=== PATIENT | female | born 1965 | race Asian ===

== ENCOUNTER 2025-04-21 15:32 | Outpatient (CLI) | payer OTHER | END 2025-04-21 23:59 | disposition home or self-care (01) | LOC: RAD 15:32 | PROVIDERS: ATTEND Orthopaedic Surgery | DX: M17.11 Unilateral primary osteoarthritis, right knee (principal) | CPT/HCPCS: 73700 ==

== ENCOUNTER 2025-05-14 09:02 | Inpatient (IN) | payer OTHER ==
[2025-05-06 14:27] LABS: MEAN PLATELET VOLUME 7.8 FL (7.4-10.4); PRE OP HEMATOCRIT 40.6 % (35.0-45.0); PRE OP HEMOGLOBIN 13.6 g/dL (12.0-16.0); PRE OP PLATELET COUNT 390 X10'3 (140-440); PRE OP WHITE BLOOD COUNT 10.1 10'3 (4.8-10.8); RED CELL DISTRIBUTION WIDTH 13.1 % (11.5-14.5)
--- NOTE | 2025-05-06 14:35 | ELECTROCARDIOGRAPH REPORT ---
[facility] Test Date: 2025-05-06 Test Time: 14:33:27 Pat Name: ANILA FLYNN Department: PRE/OP CARDIOLOGY Room: Gender: F Accounts Executive: MAYLIN : 1965 Requested By: RON NORWOOD Order Number: [id number] Reading MD: Dr. Nori Richardson Measurements Intervals [place] Rate: 77 P: 46 TX: 147 QRS: -5 QRSD: 80 T: 12 QT: 367 QTc: 416 Interpretive Statements Sinus rhythm Low voltage, precordial leads Electronically Signed On 05-07-2025 6:39:[address] Nori Richardson Please click the below link to view image of tracing.
[2025-05-06 14:40] LABS: CREATININE 0.74 MG/DL (0.40-0.90); PRE OP ALT 28 U/L (30-65); PRE OP ANION GAP 6 (8-16); PRE OP AST 15 U/L (10-37); PRE OP BILIRUB, TOTAL 0.4 MG/DL (0.0-1.0); PRE OP GLUCOSE 110 MG/DL (70-104); PRE OP POTASSIUM 3.9 MMOL/L (3.4-5.1); PRE OP SODIUM 144 MMOL/L (135-145); TOTAL CARBON DIOXIDE 30.8 MMOL/L (24-32); eGFR 80 ML/MIN
[2025-05-14] VITALS (25 sets, daily range): BP systolic 94–129; BP diastolic 47–78; PULSE 68–83; RESP 7–18; TEMP 97.4–98.4; O2SAT 93–99
[~2025-05-14] VITALS: Ht 165.1 cm; Wt 67.4 kg
[~2025-05-14 09:02] MED LIST: CELE50CA9 PO; GABA300C PO
[2025-05-14] MEDS ORDERED: vancomycin 1,000mg inj ONE (10:13)
[2025-05-14] MEDS ORDERED: BUPIVAcaine 0.5% inj/PF 30 ML ONE (11:27)
[2025-05-14] MEDS ORDERED: tetracaine 1% (10mg/ml) pres. free inj. ONE ×2 (11:28→11:31)
[2025-05-14] MEDS ORDERED: BUPIVACAINE liposomal/PF 13.3 MG/ML 10mL vial IM ONE (11:30)
[2025-05-14] MEDS ORDERED: MIDAZolam 1mg/ml 10ml vial ONE (11:32)
[2025-05-14] MEDS ORDERED: fentaNYL/PF 50MCG/1 ML 2ML syringe ONE (11:32)
[2025-05-14] MEDS ORDERED: propofol inj 20 ML IV ONE ×2 (11:54)
[2025-05-14] MEDS ORDERED: LIDOcaine 1%/PF 5ML 10 MG/ML VIAL ONE (11:54)
[2025-05-14] MEDS ORDERED: desflurane 240ml liquid inh. IH ONE (12:23)
[2025-05-14] MEDS ORDERED: fentaNYL /PF 50mcg/ml 5ml ampule ONE (12:32)
[2025-05-14] MEDS ORDERED: fentaNYL/PF 50MCG/1 ML 2ML syringe IV PRN ×2 (12:50)
[2025-05-14] MEDS ORDERED: labetalol 20mg/4ml (5mg/ml) syringe IV PRN (12:50)
[2025-05-14] MEDS ORDERED: morphine 4 MG/ML inj SYRINge IV PRN (12:50)
[2025-05-14] MEDS ORDERED: hydrALAZINE 20mg/ml inj. IV PRN (12:50)
[2025-05-14] MEDS ORDERED: ondansetron/PF 4mg/2ml inj IV PRN ×2 (12:50→14:50)
--- NOTE | 2025-05-14 13:00 | ANESTHESIA RECORDS ---
Nerve Block Providers to CC CC: RON NORWOOD MD ~ Diagnosis: Nerve Block requested by: RON NORWOOD MD Neuraxial/Peripheral Nerve Block requested for Post-operative analgesia by Physician above DIAGNOSIS: Post-operative pain. (Body Area) Shoulder: [ ] Arm: [ ] Hand: [ ] Hip: [ ] Knee: [ Right ] Ankle: [ ] Foot: [ ] Leg: [ ] Abdomen: [ ] Other: [ ] Post-operative pain expected to be/is inadequately managed by oral or IV medicines. Regional anesthetic expected to facilitate rehabilitation and/or discharge from facility. Other:[ _] Procedure Performed: Femoral / Saphenous: Right Other: Right IPACK Block Time out Done?: Yes Time of Time out: 12:19 Procedure Details: PROCEDURE DETAILS: Risks, benefits and alternatives explained Informed consent obtained, and patient wishes to proceed Conscious sedation with indicated monitors Patient positioned, pertinent anatomy defined, sterile technique used Needle used: [ ] 3 1/8 inch Stimuplex Ultra 22ga [ ] 4 inch Stimuplex Ultra 20ga [X ] 6 inch Stimuplex Ultra 20ga [ ] 6 inch, Quikbloc over the needle catheter set 20ga [ ] 4 inch Quikbloc over the needle catheter set 20ga [ ]Other: [ ] Loss of twitch @ [ ]mA [X ] Single Injection [ ] Catheter Ultrasound Guidance Used: [X ] Yes [ ] No Attempts:[__1,1 ] Medicines injected: [ ]Clonidine Amt:[ ] [ ]Dexamethasone Amt:[ ] [ ]Ropivacaine Amt:[ ] [ X ]Bupivacaine Amt:[_0.5% 30 c.c ] [ ]Lidocaine Amt:[ ] [ X ]Exparel 1.33%:[____20 c.c ] [ ]Epinephrine Amt[ ] [ ]Other: [ ] Intermittent aspiration during local anesthetic administration No symptoms of intraneural or intravenous injection Patient tolerated procedure well Comments Right mid medial thighis examined with Ultrasound and Adductor canal and vessels in the canal are identified. Needle is in canal,after negative aspirations, 10 c.c of exparel,+0.5 bupevacaine 20 c.c injected.Spread is noted. Ultrasound image is captured,documented. Right IPACK block: Right posterior thigh is examined at the level of right femoral condyle. Popliteal vessels, Posterior knee capsule are identified. Needle is placed between the knee capsule and popliteal vessels. and a mix of 10 c.c exparel,10 c.c 0.5% bupevacaine is infiltrated. spread is noted. Ultraso und image is cptured,documented. JESU AKBAR MD May 14, 2025 13:00
[2025-05-14] MEDS ORDERED: dexmedetomidine 200mcg/2ml inj. IV ONE (13:17)
[2025-05-14] MEDS ORDERED: PCA WASTE DOCUMENTATION 1 MG ML MC SCH (14:50)
[2025-05-14] MEDS ORDERED: bisacodyl 10mg suppository rectal RC PRN (14:50)
[2025-05-14] MEDS ORDERED: HYDROmorphone inj. 0.5 MG/0.5 ML DISP.SYRIN IV PRN (14:50)
[2025-05-14] MEDS ORDERED: magnesium hydroxide 30ml (MOM) UD suspension PO PRN (14:50)
--- NOTE | 2025-05-14 15:08 | OPERATIVE REPORT ---
Operative Report Providers to ~ Date of Procedure: May 14, 2025 Pre-Operative Diagnosis: SEVERE DEGENERATIVE JOINT DISEASE RIGHT KNEE. Post-Operative Diagnosis SAME as PRE-Op Procedure Performed RIGHT TOTAL KNEE CEMENTED Surgeon: RON NORWOOD MD [employer] MIKE BRANCH Anesthesiologist: Les Jernigan Type of Anesthesia: Regional (ADDUCTOR CANAL BLOCK WITH ON Q PUMP I PACK BLOCK RIGHT KNEE), Spinal Findings: SEVERE GRADE 4 TRICOMPARTMENTAL DEGENERATIVE JOINT DISEASE CHRONIC SYNOVITIS MODERATE VARUS DEFORMITY MILD FLEXION CONTRACTURE Complications None Prosthetics\Implants used: Attune to pew of the knee system size 5 right cruciate retaining femoral component. Size four tibial base plate 5 mm thick tibial insert fixed bearing medial stabilized anatomic patella 32 mm cemented PMMA antibiotic cement used Estimated Blood Loss: 150 mL Specimen Removed: Degenerative bone, meniscal, and cruciate tissues Description of Procedure: Patient was taken to the operating room after I had obtained informed consent signed her right knee I answered all of her questions discussing the indications risks benefits limitations and potential complications once this was completed the patient was given intravenous prophylactic antibiotics per protocol and then taken to the operating room she was given a spinal anesthetic and then placed in the supine position on the OR table with the left leg being placed in a SCD device. The right leg was prepped and draped in usual sterile orthopaedic fashion with a well-padded thigh tourniquet. Surgical time-out was taken per p rotocol and the case was begun. Esmarch was used for exsanguination and tourniquet was insufflated patient's knee was protected with Ioban skin dressing throughout. IM P leg salas was used. Anterior incision measuring approximately 7 in was made a medial parapatellar approach was accomplished without difficulty hemostasis was achieved with electrocautery throughout the case. Patella was inverted and found to have extensive grade 4 degenerative changes with osteophytes minimal resection of the articular surface of the patella was accomplished with the freehand technique this is measured to a 38 mm patella implant this was drilled in preparation for fixation with cement. Patellar skin was placed to protect his patella and subluxed laterally to expose the distal femur by placing the knee in flexion Medullary canal was established with a drill bit medullary adria was placed in the knee. Standard distal femoral cut was made achieving a 5 degree valgus cut this is a diminutive knee . The knee was brought onto maximal flexion and exposure of the tibial plateau was accomplished by releasing the meniscal tissue cruciate tissue as well retractors were placed posteriorly medially and laterally to expose the proximal tibia medullary canal was drilled the medullary adria was placed in the tibia anesthetic cut with a 5 degree posterior slope was placed removing a proximally 5 mm of proximal tibia measuring off the medial side this is removed without difficulty flexion-extension gaps were measured at main equal by placing the femoral component 2 mm posteriorly Distal femoral cuts were made with the for one cutting block after flexion gap was used tension diameter to establish external rotation alignment. For one cutting block with a size five cutting block was placed and anterior and posterior cuts and chamfer cuts were made without difficulty trial component fit nicely on both the tibia and femur in the knee was taken through a range of motion with a 5 mm polyethylene insert giving us full extension and full flexion stable throughout the range of motion of the patella tracking centrally Trial components were removed bony cut surfaces were irrigated and dried fixation of the definitive implants were accomplished 1st with the tibia followed by the femur placing the leg in extension with a 6 mm polyethylene insert and the patella was cemented separately with a quick set cement Simplex PMMA under a bony clamp once all cement cured in an all excess cement was removed. The tourniquet had been released hemostasis was double checked and accomplished with electrocautery tourniquet was reinflated after the leg was exsanguinated again 2 L of antibiotic impregnated normal saline was used for irrigation 1 L of antiseptic solution was used then inside portions of the knee were dried with a fresh lap sponge local anesthetic was injected in both the medial and lateral gutters for postoperative pain relief. Thrombin spray was used for hemostasis and 1 g of vancomycin powder was placed into intra- articularly for prophylaxis. The knee was taken and placed in 30 of knee flexion and medial parapatellar approach was accomplished was closed with 2. Ethibond sutures interrupted. The knee was taken two through a range of motion ensure that the patella again tracked centrally and completely achieving full range of motion. Subcuticular closure was accomplished with 2-0 Vicryl interrupted skin was closed with skin alec and sealed with silk dressing tourniquet had been released good distal pulses and capillary refill returned to the extremity. The anesthesiologist now did the adductor canal block and IPAP block afterwards the patient was then transferred to the gurney and recovery room in stable condition there were no apparent perioperative complications needle and sponge count was reported to be correct Counts repoted as correct: Yes RON NORWOOD MD May 14, 2025 15:08
--- NOTE | 2025-05-14 15:43 | RADIOLOGY REPORT ---
CLINICAL INDICATION: POSTOP RT. KNEE TECHNIQUE: DI KNEE LIMITED (AP/LAT) Comparison: CT CT LOWER EXTREMITY on DOS: 04/21/25 FINDINGS/IMPRESSION: : Expected findings post right knee arthroplasty.
[2025-05-14] MEDS: tranexamic acid inj. 700 MG in normal saline 100ml IV soln 100 ML IV ONE (19:07)
[2025-05-14] MEDS: ceFAZolin/D5W- 1GM premix 50 ML IV SCH (19:55)
[2025-05-14] MEDS ORDERED: CELECOXIB 50 MG PO SCH (20:00)
--- NOTE | 2025-05-14 21:16 | CONSULTATION REPORT - RESIDENT ---
Consult Providers to CC Resident Creating Document: FARHAN SILVA RES History of Present Illness Primary Medical Doctor: Jonna Reason for Admit\Complaint: Right knee replacement History of Present Illness 60-year-old female patient with a past medical history of right knee osteoarthritis presented to the hospital for a total right knee replacement procedure. She came in from [facility] ethylene shortness was accepted to help with the procedure. Such as performed today on 05/14/2025 and no intraoperative complications occurred. Other than pain, she has no other concerns. Allergies: Coded Allergies: ibuprofen (Verified Adverse Reaction, Unknown, NAUSEA/VOMITING, 05/13/25) Home Medications Home Medications Active Reported Neurontin (Gabapentin) 300 Mg Capsule 1 Cap PO DAILY 30 Days Celecoxib 50 Mg Capsule 1 Cap PO Q12H PRN PRN 30 Days Past Medical History Past Medical History Right knee osteoarthritis Past Surgical History Surgical History Comment Right total knee replacement on 05/14/2025 Past Social History Social History Comment Nonsmoker. No alcohol or illicit drug abuse. Lives at home with her . Ambulates independently Exam Vitals: Vital Signs Date Time Temp Pulse Resp B/P (MAP) Pulse Ox O2 Delivery O2 Flow Rate FiO2 05/14/25 16:50 16 Room Air 05/14/25 16:42 97.8 70 101/47 (65) 98 05/14/25 15:30 0.0 General: General: Awake and Alert, complains of pain Resp: Unlabored. Lungs clear to auscultation bilaterally. Heart: Regular Rate and rhythm, normal S1 and S2 without murmur, rub or gallop. Abdomen: Soft and non tender no organomegaly Extremities: Right knee dressing present. Pedal pulses intact bilaterally. No cyanosis,clubbing or edema. Skin: Warm and Dry. Additional Plan Right total knee replacement: POD 0; 05/14/[address] management [address] by Dr. Erazo- on Celebrex 20 mg b.i.d., gabapentin 300 mg t.i.d., Dilaudid 1 mg q.4 hours severe pain and 0.5 mg for moderate pain. Oxycodone 5 mg and 10 mg for moderate and severe pain Postoperative antibiotics of vancomycin completed and 1/2 bags of cefazolin on going DVT prophylaxis with aspirin 325 mg PT eval and treat for discharge planning Fall precautions Hospitalist team will continue to follow the patient alongside Dr Erazo Lines: PIV Code Status: Full code Diet: Regular DVT Prophylaxis: Aspirin Farhan Silva PGY3, Internal medicine resident Patient was evaluated using HIPPA complaint AV device Agree with the plan as discussed with the resident Yvonne Whatley MD Date of Service: May 14, 2025 Billing Provider: YVONNE WHATLEY MD, DEEPANJALI, WILMAR May 14, 2025 21:16 YVONNE WHATLEY MD May 15, 2025 03:27
[2025-05-14] MEDS: oxyCODONE IR 5mg (immed. release) tablet PO PRN (21:32)
[2025-05-14] MEDS: vancomycin/NS 1 GM ADD-VANTAGE 250 ML IV SCH (21:41)
[2025-05-14] MEDS: ringers solution, lacted 1,000 ML IV SCH ×2 (23:33→23:35)
[2025-05-14] MEDS: ceFAZolin 2gm/dext,iso 50mL 50 ML IV ONE (23:33)
[2025-05-14] MEDS: tranexamic acid 1gm/0.7% sal. 100 ML IV ONE (23:33)
[2025-05-14] MEDS: vancomycin/NS 1 GM ADD-VANTAGE 250 ML IV ONE (23:34)
[2025-05-14] MEDS: ROPIVAcaine inj 200 MG, epiNEPHrine inj 0.6 MG, morphine 10mg/ml inj. 5 MG in normal sa... IU ONE (23:34)
[2025-05-14] MEDS: potassium Cl 20mEq in NS 1,000 ML IV SCH (23:35)
[2025-05-15] VITALS (7 sets, daily range): BP systolic 125–146; BP diastolic 72–81; PULSE 81–100; RESP 14–20; TEMP 98–99.4; O2SAT 94–98
[2025-05-15 06:29] LABS: CHOL/HDL RATIO 2.9 (0.00-4.99); LDL CHOLESTEROL 75 MG/DL (50-100)
[2025-05-15 09:14] LABS: MEAN PLATELET VOLUME 9.2 FL (7.4-10.4); RED CELL DISTRIBUTION WIDTH 12.9 % (11.5-14.5)
[2025-05-15 09:20] LABS: CREATININE 0.83 MG/DL (0.40-0.90); TOTAL CARBON DIOXIDE 27.0 MMOL/L (24-32); eCRCL 64 ML/MIN; eGFR 70 ML/MIN
--- NOTE | 2025-05-15 11:05 | PROGRESS NOTE ---
Daily Progress Note Providers to CC ~ Antibiotic Timeout Antibiotic Ordered?: Yes Subjective No acute events overnight. Patient examined at bedside. No new complaints. Patient denies chest pain, sob, palpitations, abdominal pain, n/v/d. Vss, labs notable for leukocytosis. POD 1 s/p right TKA. Continued on abx supportive care. Continue PT. Objective Vital Signs Date Time Temp Pulse Resp B/P (MAP) Pulse Ox O2 Delivery O2 Flow Rate FiO2 05/15/25 10:35 12 05/15/25 02:00 98.0 100 146/81 (102) 98 Nasal Cannula 1.0 Result Diagram: 05/15/2552505/15/25525 Physical Exam General: Generalized weakness, A&Ox 3, NAD HEENT: Normocephalic, PERRLA Neck: Supple, trachea midline, no JVD Chest: Clear to auscultation bilaterally Cardiovascular: RRR, S1&S2 GI: Soft and nontender Extremities: Mildly edematous RLE, +2 pulses present in femoral, popliteal, posterior tibial, dorsalis pedis BLOCK HACKER: CN II-XII intact, no focal deficits Musculoskeletal: No paraspinal muscle tenderness, no muscle spasm Skin: incisions closed, no s/s of infection Problem\Assessment\Plan Assessment & Plan s/p right total knee arthroplasty OA of right knee 05/15: POD1, continue abx, supportive care, PT Date of Service: May 15, 2025 Billing Provider: SALOME MARTEL Common Visit Codes: [id number] INP/OBS CARE(HIGH) SALOME MARTELP May 15, 2025 11:05
[2025-05-15] MEDS: oxyCODONE IR 5mg (immed. release) tablet PO PRN (13:30)
[2025-05-15] MEDS: ceFAZolin/D5W- 1GM premix 50 ML IV SCH (17:41)
[2025-05-16 06:00] VITALS: BP 115/71; PULSE 81; RESP 16; TEMP 97.8; O2SAT 95
[2025-05-16 06:06] LABS: CREATININE 0.71 MG/DL (0.40-0.90); TOTAL CARBON DIOXIDE 30.3 MMOL/L (24-32); eCRCL 75 ML/MIN; eGFR 84 ML/MIN
[2025-05-16 06:15] LABS: MEAN PLATELET VOLUME 8.7 FL (7.4-10.4); RED CELL DISTRIBUTION WIDTH 12.7 % (11.5-14.5)
[2025-05-16 08:00] VITALS: RESP 16; O2SAT 95
[2025-05-16 10:00] VITALS: BP 119/78; PULSE 81; RESP 19; TEMP 98.1; O2SAT 100
--- NOTE | 2025-05-16 16:24 | PROGRESS NOTE ---
Daily Progress Note Providers to CC ~ Antibiotic Timeout Antibiotic Ordered?: Yes Subjective No acute events overnight. Patient examined at bedside. No new complaints, not in acute distress. Patient denies chest pain, sob, palpitations, abdominal pain, n/v/d. Vss, labs notable for leukocytosis. POD 2 s/p right TKA. Continued on abx and supportive care. Continue PT. Objective Vital Signs Date Time Temp Pulse Resp B/P (MAP) Pulse Ox O2 Delivery O2 Flow Rate FiO2 05/16/25 14:24 12 05/16/25 10:00 98.1 81 119/78 (92) 100 Room Air 05/15/25 20:00 1.0 Result Diagram: 05/16/2537 05/16/25 0537 Physical Exam General: Generalized weakness, A&Ox 3, NAD HEENT: Normocephalic, PERRLA Neck: Supple, trachea midline, no JVD Chest: Clear to auscultation bilaterally Cardiovascular: RRR, S1&S2 GI: Soft and nontender Extremities: Mildly edematous RLE, +2 pulses present in femoral, popliteal, posterior tibial, dorsalis pedis SALON ASSISTANT: CN II-XII intact, no focal deficits Musculoskeletal: No paraspinal muscle tenderness, no muscle spasm Skin: incisions closed, no s/s of infection Problem\Assessment\Plan Assessment & Plan s/p right total knee arthroplasty OA of right knee 05/15: POD1, continue abx, supportive care, PT DVT Prophylaxis: aspirin 325mg Code Status: Full Code Date of Service: May 16, 2025 Billing Provider: SALOME MARTEL Common Visit Codes: [id number] INP/OBS CARE(HIGH) SALOME MARTEL May 16, 2025 16:24
[2025-05-16 18:00] VITALS: BP 109/62; PULSE 80; RESP 16; TEMP 98; O2SAT 100
[2025-05-16] MEDS: pantoprazole 40mg Tablet.DR PO ONE (18:52)
[2025-05-16 20:00] VITALS: RESP 16; O2SAT 100
[2025-05-16 22:00] VITALS: BP 114/59; PULSE 81; RESP 17; TEMP 98.6; O2SAT 96
[2025-05-17 06:00] VITALS: BP_SYST 117; BP_SYST 152; BP_DIAS 76; BP_DIAS 82; PULSE 71; PULSE 78; RESP 17; RESP 18; TEMP 98; TEMP 98.1; O2SAT 96; O2SAT 98
[2025-05-17 06:25] LABS: MEAN PLATELET VOLUME 9.2 FL (7.4-10.4); RED CELL DISTRIBUTION WIDTH 12.9 % (11.5-14.5)
[2025-05-17 06:55] LABS: CREATININE 0.74 MG/DL (0.40-0.90); TOTAL CARBON DIOXIDE 30.7 MMOL/L (24-32); eCRCL 72 ML/MIN; eGFR 80 ML/MIN
[2025-05-17] MEDS ORDERED: PANT40TA54 PO (07:10)
[2025-05-17] MEDS ORDERED: ASPI-1 PO (07:10)
[2025-05-17] MEDS ORDERED: HYDR-3965 PO (07:10)
[2025-05-17] MEDS: pantoprazole 40mg Tablet.DR PO SCH (09:20)
[2025-05-17 09:40] VITALS: RESP 16
--- NOTE | 2025-05-17 10:47 | DISCHARGE SUMMARY ---
Discharge Summary Providers to CC ~ Discharge Summary Admission Diagnosis: Severe OA, s/p right TKA Hospital Course DATE OF ADMISSION: 05/14/25 DATE OF DISCHARGE: 05/17/25 Discharge Diagnosis\\Comment: s/p right total knee arthroplasty OA of right knee Generalized weakness Operations\\Procedures: Right total knee arthroplasty Consultants: None Complications: None Condition on DC: Stable New Medications: Aspirin (Aspirin) 325 Mg Tablet 1 TAB PO Q24H@0830 for 30 Days, #30 TAB Pantoprazole Sodium (Pantoprazole Sodium) 40 Mg Tablet.dr 40 MG PO BKF for 30 Days, #30 TAB.SR Continued Medications: Celecoxib (Celecoxib) 50 Mg Capsule 1 CAP PO Q12H PRN PRN for pain for 30 Days, #60 CAP 0 Refills Gabapentin (Neurontin) 300 Mg Capsule 1 CAP PO BID for 30 Days, #90 CAP 0 Refills Discharge Summary: History of Present Illness From H&P: "60-year-old female patient with a past medical history of right knee osteoarthritis presented to the hospital for a total right knee replacement procedure. She came in from [facility] was accepted to help with the procedure. Such as performed today on 05/14/2025 and no intraoperative complications occurred. Other than pain, she has no other concerns." Hospital Course Patient was treated with supportive care and was evaluated by physical therapy service. Patient did not experience further complications throughout the entire hospital stay. Patient was seen and examined on the day of discharge. On day of discharge, vss and labs unremarkable. All labs, diagnostic workups, discharge plan discussed with patient in details during visit before discharge. All questions and concerns answered to the best of my professional knowledge. Patient is to be discharged with and to follow-up with PCP and Dr. Erazo within 2 weeks. Physical Exam General: Generalized weakness, A&Ox 3, NAD HEENT: Normocephalic, PERRLA Neck: Supple, trachea midline, no JVD Chest: Clear to auscultation bilaterally Cardiovascular: RRR, S1&S2 GI: Soft and nontender Extremities: Mildly edematous RLE, +2 pulses present in femoral, popliteal, posterior tibial, dorsalis pedis REJECT OPENER AND FILLER: CN II-XII intact, no focal deficits Musculoskeletal: No paraspinal muscle tenderness, no muscle spasm Skin: incisions closed, no s/s of infection *Problems/Diagnosis: (1) Total knee replacement status Status: Acute Total Time Spent on D/C: > 30 Minutes Date of Service: May 17, 2025 Billing Provider: SALOME MARTEL Common Visit Codes: 52318-VOD/OBS DISCH DAY >30min SALOME MARTEL May 17, 2025 10:47
== END 2025-05-17 09:50 | disposition home health service (06) | DRG 470 ==
LOC: PAS IN 09:02 → ORTHO 4S 16:20
PROVIDERS: ADMIT Orthopaedic Surgery; ATTEND Nurse Practitioner Family
PROC: 3E0T3BZ Introduction of Anesthetic Agent into Peripheral Nerves and Plexi, Percutaneous Approach (ICD-10-PCS; 2025-05-14)
PROC: 0SRC0J9 Replacement of Right Knee Joint with Synthetic Substitute, Cemented, Open Approach (ICD-10-PCS; principal; 2025-05-14 11:35)
DX: M17.11 Unilateral primary osteoarthritis, right knee (principal); M65.961 Unspecified synovitis and tenosynovitis, right lower leg; D72.829 Elevated white blood cell count, unspecified
CPT/HCPCS: Z7506; Z7508; 36415; 73560; 80048; 80053; 80061; 82948; 83036; 84145; 85025; 87081; 93005; 97110; 97116; 97161; 97530; A4215; A4615; A4618; A6253; A6258; A6446; A6449; A6454; C1713; C1758; C1776; C9250; G0378; J0666; J0690; J1171; J2250; J2704; J3010; J3373; J3480; J3490; J7120; Q0163